=== PATIENT | male | born 1980 | race African-American/Black ===

== ENCOUNTER 2017-07-08 12:47 | Emergency (ER) | payer OTHER ==
[~2017-07-08] VITALS: Ht 195.6 cm; Wt 106.8 kg
[~2017-07-08 12:47] MED LIST: AMOXICILLIN PO; NAPROSYN500 MG PO; PERCOCET 5/31 TABLET PO
[2017-07-08 15:07] LABS: HEMATOCRIT 41.9 % (38.0-50.0); MCH 33.4 PG (29.0-34.0); MCHC 33.9 G/DL (30.0-36.0); MCV 98.6 FL (86-99); MEAN PLAT.VOLUME 9.3 uM^3 (9.0-12.4); PLATELET COUNT 308 K/uL (156-360); RBC DIS.WIDTH-CV 12.7 % (11.8-14.6); RBC DIS.WIDTH-SD 46.1 % (39-53); RED BLOOD COUNT 4.25 M/uL (4.00-5.50); WHITE BLOOD COUNT 9.7 K/uL (4.1-10.2)
[2017-07-08 15:18] LABS: CHLORIDE 100 mEq/L (99-109); POTASSIUM 3.4 mEq/L (3.7-5.4); SODIUM 139 mEq/L (136-147)
[2017-07-08 15:21] LABS: GLUCOSE 115 mg/dL (70-99)
[2017-07-08 15:22] LABS: ANION GAP 14 MEQ/L (2-14); TOTAL BILIRUBIN 1.6 mg/dL (0.0-1.0)
[2017-07-08 15:24] LABS: ALKALINE PHOSPHATASE 71 IU/L (3-129); GFR ESTIMATE (CALCULATED) > 59 mL/min/
[2017-07-08 15:25] LABS: UREA NITROGEN (BUN) 5 mg/dL (9-23)
[2017-07-08 15:27] LABS: URIC ACID 6.9 mg/dL (3.1-9.2)
[2017-07-08] MEDS ORDERED: INDOCIN50 MG PO (15:31)
[2017-07-08] MEDS ORDERED: ULTRAM50 MG PO (15:31)
[2017-07-08] MEDS ORDERED: MOTRIN800 MG PO (15:34)
[2017-07-08 16:04] VITALS: BP 147/103
== END 2017-07-08 16:07 | disposition home or self-care (01) ==
LOC: EME 12:47
PROVIDERS: Nurse Practitioner Family
DX: M10.071 Idiopathic gout, right ankle and foot (principal); M10.061 Idiopathic gout, right knee; F17.200 Nicotine dependence, unspecified, uncomplicated
CPT/HCPCS: 73564; 73630; 80053; 84550; 85027; 99281; 99284